=== PATIENT | male | born 1975 | race Caucasian/White ===

== ENCOUNTER 2025-06-15 07:49 | Emergency (ER) | payer OTHER, SELFPAY ==
[2025-06-15 07:53] VITALS: BP 160/98
--- NOTE | 2025-06-15 09:07 | ED.GENMED ---
History of Present Illness
General
Chief Complaint: Flank Pain
Time Seen by Provider: 06/15/25 09:05
History of Present Illness
History of Present Illness:
FOCUSED PAST MEDICAL HISTORY
- Had a kidney stone 2016 that did not require surgery
REVIEW OF OLD RECORDS
- No old records available for review in [facility]
Note:
CHIEF COMPLAINT(S)
Severe right lower abdominal pain, intermittent over the past three days.
HISTORY OF PRESENT ILLNESS
The patient is a 49-year-old male who presents with acute right lower abdominal pain that began three days ago. He describes the onset as sudden and reports that the pain has been intermittent. The pain typically begins following meals, with the
first episode occurring after a late night meal three days ago. Each episode lasts approximately six hours. The patient rates this pain as more intense than his previous experience with kidney stones in 2016, during which no surgical intervention or
stent placement was required. Currently, he describes the pain as sharp and persistent during episodes, located primarily in the right flank extending to the front. The pain is exacerbated by touch in the lower right quadrant but does not elicit a
significant response in the back. This morning, the patient experienced an episode of vomiting at 4:30 AM and reports dry mouth, though he denies any fever. He notes a decrease in urine output, describing it as small and frequent amounts.
PHYSICAL EXAM
General: Alert, fairly comfortable despite reported pain.
Skin: Warm, dry.
Head: Normocephalic, atraumatic.
Neck: Supple, trachea midline.
Eye, Ears, Nose, Mouth, and Throat: Oral mucosa dry.
Cardiovascular: Borderline tachycardic but otherwise normal peripheral perfusion, No edema.
Respiratory: Respirations are non-labored.
Gastrointestinal: Right lower quadrant tenderness, mild to moderate; no peritoneal signs observed.
Back: No significant costovertebral angle tenderness.
Musculoskeletal: Normal range of motion, normal strength.
Neurological: Alert and oriented to person, place, time, and situation, No focal neurological deficit observed.
Psychiatric: Cooperative, appropriate mood & affect.
PROBLEM LIST
- Acute: Intermittent severe right lower abdominal pain, Vomiting, Decreased urine output, Dry mouth
PLAN
1. Obtain a computed tomography (CT) scan of the abdomen to evaluate for potential appendicitis, kidney stones, or other causes of the abdominal pain.
2. Administer ketorolac for pain management, as it is a non-narcotic anti-inflammatory medication.
3. Provide anti-nausea medication to address the patients vomiting.
4. Administer intravenous fluids for dehydration and dry mouth symptoms.
5. Conduct a urine analysis to assist in diagnosing potential kidney stones.
DIFFERENTIAL DIAGNOSIS
The Differential Diagnosis includes, in no particular order and is not limited to:
- Appendicitis
- Renal colic (kidney stones)
- Gastroenteritis
- Diverticulitis
- Urinary tract infection
- Muscle strain
- Cholecystitis
- Pancreatitis
- Abdominal aortic aneurysm
- Hepatitis
RADIOLOGY
- Small UVJ stone noted as I personally reviewed CT imaging
LABS
- CBC normal
SUMMARY OF ENCOUNTER
The patient presented to the emergency department with severe intermittent right lower abdominal pain that began three days ago. After evaluation and imaging, it was determined that the patient has a 3 mm kidney stone located near the bladder,
causing pain as it passes through the urinary tract. It is anticipated that the stone will continue to move into the bladder, allowing the patient to pass it when urinating. The pain experienced is consistent with renal colic from kidney stones.
Additional diagnostics to rule out other conditions, such as appendicitis, were considered and found unnecessary as the current findings were sufficient for diagnosis.
ASSESSMENT
The patient is experiencing renal colic due to a kidney stone, which is 3 mm in size and located near the bladder. No signs of appendicitis or large obstructing kidney stones that require hospitalization were present.
INDEPENDENT REVIEW OF LABS AND INTERPRETATION OF TESTS
My independent CT scan interpretation confirms the presence of a 3 mm kidney stone located close to the bladder, with no indication of appendicitis.
PLAN
Encourage hydration to facilitate the passage of the kidney stone. The patient should continue with pain management as needed and monitor for signs of infection.
PATIENT EDUCATION AND COUNSELING
The patient was informed about the process of passing a kidney stone and advised about potential symptoms to monitor, such as signs of infection. Emphasized the importance of hydration.
FOLLOW-UP INSTRUCTIONS
The patient should schedule a follow-up visit with their primary care physician or a urologist if symptoms persist or worsen.
MEDICAL DECISION MAKING
Number and Complexity of Problems Addressed: Chronic conditions affecting care, history of kidney stones. Differential diagnosis includes appendicitis, kidney stones, gastroenteritis, diverticulitis, urinary tract infection, muscle strain,
cholecystitis, pancreatitis, abdominal aortic aneurysm, hepatitis.
Data:
Category 1: Tests and documents reviewed included a CT scan confirming a 3 mm kidney stone near the bladder.
Category 2: No additional input from external sources was obtained.
Category 3: No discussions with other healthcare providers were indicated in the transcript.
DIAGNOSIS
Kidney stone (Urolithiasis) - ICD-10 Code: N20.0
UPDATE
- Intermittent right lower quadrant pain for days associated with urinary flow changes
- Small distal UVJ stone noted
- Was given Toradol
- Mild renal insufficiency noted
- No sign of UTI
- Appears comfortable after Toradol given; recommended to hold off on further NSAIDs
- Strainer was given
Phy Exam
Physical Exam
Physical Exam:
See HPI
Course
Orders/Labs/Results
Orders:
Orders
06/15/25 09:12
CT Abd/pel Without Iv Or Oral Urgent
Comment:
Reason For Exam: abrupt intermittent R side pain altered urine flow
0.9% Sodium Chloride 1000 ml [Nss] 1,000 ml IV BOLUS
Ketorolac [Toradol] 15 mg IV NOW STA
Ondansetron Injectable [Zofran] 4 mg IV NOW STA
06/15/25 09:38
Complete Blood Count/With Diff Urgent
Comprehensive Metabolic Panel Urgent
Lipase Urgent
Urinalysis Reflex To Culture Urgent
Date Specimen was Collected: 06/15/25
Time Specimen was Collected: 09:15
Urine Microscopic Reflex Cult Urgent
Abnormal Lab Results
06/15/25
09:38
Absolute Monos (auto) 0.7 H 10^3/uL
(0.1-0.6)
Lymphocytes % 17.3 L %
(20.5-51.1)
Chloride 108 H mmol/L
(98-107)
Creatinine 1.5 H mg/dL
(0.7-1.3)
Glucose 105 H mg/dl
(70-99)
Ur Occult Blood Reflex 1+ A
(Negative)
Urine Albumin (Reflex) 1+ A
(Neg - Trace)
06/15/25 09:38
06/15/25 09:38
Vital Signs
Initial and Last Documented VS:
Initial Vital Signs
Temp Pulse Resp BP Pulse Ox
36.9 C 114 22 160/98 97
06/15/25 07:53 06/15/25 07:53 06/15/25 07:53 06/15/25 07:53 06/15/25 07:53
Last Documented Vital Signs
Temp Pulse Resp BP Pulse Ox
36.9 C 114 22 160/98 97
06/15/25 07:53 06/15/25 07:53 06/15/25 07:53 06/15/25 07:53 06/15/25 09:08
*Pulse Oximetry
SaO2: 97
Oxygen Mode of Delivery: Room air
Patient hypoxic: no
*Critical Care Note
Total Time (30-74mins, 75-104mins- exclusive of procedures): Not Applicable
ED Attending Note
-
Portions of this chart may have been created with voice recognition software.� Occasional wrong word or��sound alike� substitutions may have occurred due to the inherent limitations of voice recognition software.
Discharge Plan
Departure
Patient Disposition: Home (Routine Discharge)
Date of Disposition: 06/15/25
Time of Disposition: 11:15
Patient with high blood pressure during this ER visit?: Yes
Discharge Problem:
Right distal ureteral calculus
Instructions: Kidney Stones (DC), How to Strain Your Urine, BLOOD PRESSURE, Narcotic Pain Medication
Prescriptions:
New
tamsulosin 0.4 mg capsule
0.4 mg PO DAILY Qty: 30 0RF
ondansetron HCl 4 mg tablet
4 mg PO Q8H PRN (Reason: nausea and vomiting) Qty: 14 0RF
oxycodone-acetaminophen [Percocet] 5-325 mg tablet
1 - 2 tab PO Q6HPRN PRN (Reason: pain) Qty: 14 0RF
Referrals:
Reagan Carpio MD [Active, Urology]
UNKNOWN - PT DOES,NOT KNOW [Family Provider]
Activity Restrictions/Additional Instructions:
You have a 3 mm stone in the far down part of your right ureter near the bladder. We gave you Toradol here. Return here if worse. I also recommend that you follow-up with urologist such as Dr. Carpio. Your basic blood work is normal however your
kidney function is slightly impaired with a creatinine of 1.5 and a GFR of 56. Normal creatinine should be 1.3 and under and a GFR should be at least 60. Therefore I recommend limiting the use of any NSAIDs such as Motrin. You do have signs of
blood in the urine which is common kidney stones but there is no sign of urinary tract infection.
Interventions
Interventions:
*General Assessment Last Done: 06/15/25 07:53
*Neglect/Abuse Screening Last Done: 06/15/25 07:53
*Risk Screen - Suicide (C-SSRS) Last Done: 06/15/25 07:53
Discharge Date and Time
Print Language: BAHRAINI
[2025-06-15] MEDS: ZOFRAN 4 MG IV (09:40)
[2025-06-15] MEDS: TORADOL 15 MG IV (09:40)
[2025-06-15] MEDS: NSS 1000 IV (09:41)
[2025-06-15 09:51] LABS: Hematocrit 46.5 % (39.0-52.0); Hemoglobin 15.5 g/dL (13.0-18.0); Mean Corp Hgb Conc. 33.3 g/dL (33.0-37.0); Mean Corpuscular Volume 83.3 fL (80.0-94.0); Nucleated Red Blood Cells % 0 % (-); Platelet Count 225 10^3/uL (130-400); Red Cell Dist. Width 13.5 % (11.5-14.5)
[2025-06-15 10:19] LABS: Albumin 4.7 g/dl (3.5-5.0); Chloride 108 mmol/L (98-107); Potassium 4.2 mmol/L (3.5-5.1); Sodium 140 mmol/L (135-145)
[2025-06-15 10:26] LABS: ALT (SGPT) 33 U/L (0-50); AST (SGOT) 22 U/L (17-59); Alkaline Phosphatase 56 U/L (38-126); Blood Urea Nitrogen 16 mg/dl (9-20); Calcium 9.7 mg/dl (8.4-10.2); Carbon Dioxide 22 mmol/L (22-30); Glucose 105 mg/dl (70-99); Lipase 124 U/L (23-300); Total Protein 7.8 g/dl (6.3-8.2); eGFR 56.02
[2025-06-15 11:08] LABS: Urine Character Clear (Clear)
[2025-06-15 11:25] LABS: Urine Squamous Cell 0-2 /LPF (Few)
== END 2025-06-15 11:29 | disposition home or self-care (01) ==
LOC: EMR 07:49
PROVIDERS: EMERGENCY PHYSICIAN Emergency Medicine
DX: N13.2 Hydronephrosis with renal and ureteral calculous obstruction (principal); E86.0 Dehydration; Z87.442 Personal history of urinary calculi
CPT/HCPCS: 99284; 96374; 96375; 96361; 74176; 80053; 81003; 81015; 83690; 85025; 87086